=== PATIENT | male | born 1965 | race Caucasian/White ===

== ENCOUNTER 2016-11-26 13:30 | Emergency (ER) | payer BC, OTHER ==
[2016-11-26 13:44] VITALS: BP 143/90; TEMP 98.3; BMI 29.7
--- NOTE | 2016-11-26 13:57 | PDOC ---
History of Present Illness - General Chief Complaint: Injury Stated Complaint: Right middle finger injury Time Seen by Provider: 11/26/16 13:37 History Source: Patient Exam Limitations: No Limitations - History of Present Illness Initial Comments: 11/26/16 13:56 51y M preswnting with R middle finger pain. 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 the pt endorses feeling a pounding pain in his finger, but states it is mild and declines any pain meds. The pt states he was able to complete his route (injury occurred approx 10am). Pt denies any other injuries, numness/tingling/weakness. there was a small alceation that was bleeding, he put a bandaid on it and it has stopped bleeding Past History - Past Medical History Allergies/Adverse Reactions: Allergies Allergy/AdvReac Type Severity Reaction Status Date / Time No Known Drug Allergies Allergy Verified 11/26/16 13:36 Home Medications: Ambulatory Orders Amoxicillin/Potassium Clav [Augmentin 875-125 Tablet] 1 each PO BID #6 tablet Cephalexin [Keflex] 500 mg PO TID #9 capsule 11/26/16 Anemia: No Asthma: Yes (SINCE CHILDHOOD,DOESN'T USE INHALERS) Cancer: No Cardiac Disorders: No CVA: No COPD: No CHF: No Dementia: No Diabetes: No GI Disorders: No Disorders: No HTN: Yes Hypercholesterolemia: Yes Liver Disease: No Seizures: No Thyroid Disease: No - Surgical History Abdominal Surgery: Yes (REPAIR ABD HERNIA 1990) Appendectomy: No Cardiac Surgery: No Cholecystectomy: No Lung Surgery: No Neurologic Surgery: Yes (C5-7 FUSION 2006) Orthopedic Surgery: Yes (RIGHT LEG SX X2 1998,2000) - Psycho/Social/Smoking Cessation Hx Anxiety: No Suicidal Ideation: No Smoking Status: No Smoking History: Never smoked Have you smoked in the past 12 months: No Number of Cigarettes Smoked Daily: 0 Hx Alcohol Use: No Drug/Substance Use Hx: No Substance Use Type: None Hx Substance Use Treatment: No Review of Systems - Review of Systems Able to Perform ROS?: Yes Comments:: 11/26/16 13:59 Constitutional - no reported Fever, Chills, harge Musculskelatal - +R middle finger pain no reported back pain, skin - +laceration no reported bruising, erythema, rash neurological: no reported numbness, focal weakness, tingling, hematologic: no reported anemia, easy bruising, easy bleeding *Physical Exam - Vital Signs Last Vital Signs Temp Pulse Resp BP Pulse Ox 98.3 F 143 H 15 143/90 100 11/26/16 13:35 11/26/16 13:35 11/26/16 13:35 11/26/16 13:35 11/26/16 13:35 - Physical Exam Comments: 11/26/16 14:02 GENERAL: The patient is awake, alert, and fully oriented, Nontoxic - in no acute distress. HEAD: Normocephalic, atraumatic. EXTREMITIES: contusion and tenderness/edema to middle finger on R hand at DIP, .5cm laceration without any active bleeding, no signs of subungal hematoma, normal ROM of pip/mcp/dip, wrist/elbow/shoulder. NEUROLOGICAL: No facial assymetry, Normal speech, sensation intact, distally. Procedures - Consent Consent obtained: Verbal - Laceration/Wound Repair Right 3rd digit Wound Length: to 2.5 cm Wound Explored: clean, no foreign body present Wound's Depth, Shape: superficial Irrigated w/ Saline: Yes Anesthesia: 1% Lidocaine Amount of Anesthetic (ccs): 5 (digital block) Wound Debrided: minimal Wound Repaired With: Sutures Suture Size/Type: 5:0, 3:0, nylon Number of Sutures: 2 (1x 5.0, 1x 3.0) Layer Closure: No Sterile Dressing Applied: Yes ED Treatment Course - RADIOLOGY Radiology Studies Ordered: Category Date Time Status FINGER(S) RIGHT [RAD] Stat Radiology 11/26/16 13:54 Ordered Medical Decision Making - Medical Decision Making 11/26/16 14:04 will r/o fx with xray will update tetanus will clean/irregate lac and close with 1 suture 11/26/16 14:28 xray noted for tuft fx to distal phalynx technically meets criteria for open fracture - however i suspect there is no communication between fracture and laceration. will irrigate thgouhly and close laceration will give dose of ancef and will notify ortho 11/26/16 15:22 digital block performed area throughly irrigated with sterile saline no fb or other material noted closed with 2 sutures (1x 3.0, 1x 5.0) with good approximation will dc with augmentin x 5 days return in 10-14 days for suture removal return precautions were discussed including signs of infection I discussed the physical exam findings, ancillary test results and final diagnoses with the patient. I answered all of the patient's questions. The patient was satisfied with the care received and felt comfortable with the discharge plan and treatment plan. The patient will call their primary care physician within 24 hours to arrange follow-up and will return to the Emergency Department with any new, persistent or worsening symptoms. 11/26/16 15:49 case tasha [place], agree with management will have pt fu with ortho next week *DC/Admit/Observation/Transfer Diagnosis at time of Disposition: Open fracture of tuft of distal phalanx of finger Qualifiers: Encounter type: initial encounter Qualified Code(s): S62.639B - Displaced fracture of distal phalanx of unspecified finger, initial encounter for open fracture - Discharge Dispostion Disposition: HOME Condition at time of disposition: Good Admit: No - Prescriptions Prescriptions: Amoxicillin/Potassium Clav [Augmentin 875-125 Tablet] 1 each PO BID #6 tablet Cephalexin [Keflex] 500 mg PO TID #9 capsule - Referrals Referrals: Delonte Doyle MD [Primary Care Provider] - Isidro Iniguez MD [Staff Physician] - - Patient Instructions Printed Discharge Instructions: DI for Open Fracture Additional Instructions: Return to the emergency department immediately with ANY new, persistent or worsening symptoms including any worsening pain, redness, swelling, purulent discharge, fevers or chills or other concerns You MUST call and follow up with your doctor and orthopedic doctor in 1 week for further evaluation of your symptoms. Results were discussed with you. Please make sure your doctor reviews the results of your emergency evaluation. Print Language: FAROESE - Post Discharge Activity Work/School Note: Back to Work
[2016-11-26] MEDS ORDERED: DIPHTH,PERTUSS(ACELL),TET VAC 0.5 ML VIAL IM ONE (14:04)
[2016-11-26 14:07] VITALS: PULSE 68
[2016-11-26] MEDS ORDERED: CEFAZOLIN 1 GM in DEXTROSE 5%-WATER - 50 ML IVPB ONE (14:25)
[2016-11-26] MEDS ORDERED: ceFAZolin SODIUM 1 GM VIAL ONE (14:39)
== END 2016-11-26 16:13 | disposition home or self-care (01) ==
LOC: FER 13:30
PROC: 0HQFXZZ Repair Right Hand Skin, External Approach (ICD-10-PCS; principal; 2016-11-26)
DX: S62.639B Displaced fracture of distal phalanx of unspecified finger, initial encounter for open fracture (principal); S61.212A Laceration without foreign body of right middle finger without damage to nail, initial encounter; W22.8XXA Striking against or struck by other objects, initial encounter; Y93.89 Activity, other specified; Y92.410 Unspecified street and highway as the place of occurrence of the external cause; Y99.0 Civilian activity done for income or pay
CPT/HCPCS: 73140-TC-RT; 99282-25

== ENCOUNTER 2017-01-24 11:03 | Emergency (ER) | payer SELFPAY ==
--- NOTE | 2017-01-24 11:07 | PDOC ---
Attending Attestation - Resident Resident Name: Javier Gallardoel - ED Attending Attestation I have performed the following: I have examined & evaluated the patient, The case was reviewed & discussed with the resident, I agree w/resident's findings & plan, Exceptions are as noted - HPI HPI: 01/24/17 11:05 The patient is a 51-year-old male, with a significant past medical history of prior bee sting ALLERGY (non-anaphylactic) who presents to the emergency department with left ear swelling and pain, after he was stung by a wasp. He denies dyspnea, wheeze, diffuse rash, dizziness, abdominal pain. He denies any other stings. 01/24/17 11:31 - Physicial Exam PE: 01/24/17 11:06 He is well-appearing and in no acute distress Vitals noted Ears minimal erythema, increased warmth and edema of the left ear There is no rash or swelling elsewhere There is no swelling of the lips, tongue or posterior pharynx - Medical Decision Making 01/24/17 11:06 The patient is well-appearing and in no acute distress Vitals noted There is no evidence of anaphylaxis 01/24/17 11:31 No worsening of symptoms Clinical Impression: Local ALLERGIC reaction to hymenoptera I discussed the physical exam findings, ancillary test results and final diagnoses with the patient. I answered all of the patient's questions. The patient was satisfied with the care received and felt comfortable with the discharge plan and treatment plan. The patient will call their primary care physician within 24 hours to arrange follow-up and will return to the Emergency Department with any new, persistent or worsening symptoms.
[2017-01-24 11:16] VITALS: BP 122/82; PULSE 65; TEMP 98.2; BMI 28.1
--- NOTE | 2017-01-24 11:17 | PDOC ---
History of Present Illness - General Chief Complaint: Bite Stated Complaint: left ear bee sting Time Seen by Provider: 01/24/17 11:05 - History of Present Illness Initial Comments: 01/24/17 11:25 Patient is a 51 year old male with a previous history of a localized reaction to bee venom who presents immediately following a sting to his left ear 15 min prior. Patient reported initial pain with the sting which has resolved and now reports numbness to the left ear lobe. He reports that with his previous sting , he experienced localized swelling without any difficulty breathing, abdominal discomfort or hives. He currently denies any difficulty breathing, abdominal discomfort, nausea, vomiting, rash, or itching. Past History - Past Medical History Allergies/Adverse Reactions: Allergies Allergy/AdvReac Type Severity Reaction Status Date / Time bee venom protein (honey bee) Allergy Verified 01/24/17 11:05 No Known Drug Allergies Allergy Verified 11/26/16 13:36 Anemia: No Asthma: Yes (SINCE CHILDHOOD,DOESN'T USE INHALERS) Cancer: No Cardiac Disorders: No CVA: No COPD: No CHF: No Dementia: No Diabetes: No GI Disorders: No Disorders: No HTN: Yes Hypercholesterolemia: Yes Liver Disease: No Seizures: No Thyroid Disease: No - Surgical History Abdominal Surgery: Yes (REPAIR ABD HERNIA 1990) Appendectomy: No Cardiac Surgery: No Cholecystectomy: No Lung Surgery: No Neurologic Surgery: Yes (C5-7 FUSION 2006) Orthopedic Surgery: Yes (RIGHT LEG SX X2 1998,2000) - Immunization History Immunization Up to Date: Yes - Psycho/Social/Smoking Cessation Hx Anxiety: No Suicidal Ideation: No Smoking Status: No Smoking History: Never smoked Have you smoked in the past 12 months: No Number of Cigarettes Smoked Daily: 0 Information on smoking cessation initiated: No Hx Alcohol Use: No Drug/Substance Use Hx: No Substance Use Type: None Hx Substance Use Treatment: No Review of Systems - Review of Systems Constitutional: No: Malaise, Weakness HEENTM: Yes: Ear Pain. No: Ear Discharge, Hearing Loss, Throat Swelling, Difficulty Swallowing, Mouth Swelling Respiratory: No: Cough, Shortness of Breath, Wheezing ABD/GI: No: Nausea, Vomiting, Abdominal cramping Neurological: No: Headache, Weakness, Dizziness *Physical Exam - Vital Signs Last Vital Signs Temp Pulse Resp BP Pulse Ox 98.2 F 65 20 122/82 98 01/24/17 11:04 07/03/17 11:04 01/24/17 11:04 01/24/17 11:04 01/24/17 11:04 - Physical Exam General Appearance: Yes: Nourished. No: Apparent Distress HEENT: positive: Normal Voice, Other (Erythema and Mild edema to the left outer ear lobe localized around a sting site. No labial or pharangeal edema.). negative: Hearing Decreased, TM Bulging, TM Erythema Respiratory/Chest: positive: Lungs Clear, Normal Breath Sounds. negative: Rales , Rhonchi, Wheezing Cardiovascular: positive: Regular Rhythm, Regular Rate Gastrointestinal/Abdominal: positive: Normal Bowel Sounds, Soft. negative: Tender Medical Decision Making - Medical Decision Making 01/24/17 11:37 Given the patient's history of a previous localized reaction to a bee sting and his current physical exam, his symptoms are most consistent with a localized reaction to this current sting. However, given his previous reaction we still opted to observe the patient for 30-45min to make sure that he did not develop an anaphylactic reaction. We gave the patient 25mg Benadryl to help with the localized reaction as well. The patient remained asymptomatic throughout his stay in the ED and was determined to be safe for discharge home. Return precautions were discussed with the patient and the patient voiced understanding. 01/24/17 11:54 *DC/Admit/Observation/Transfer Diagnosis at time of Disposition: Bee sting reaction Qualifiers: Encounter type: initial encounter Injury intent: accidental or unintentional Qualified Code(s): T63.441A - Toxic effect of venom of bees, accidental ( unintentional), initial encounter - Discharge Dispostion Disposition: HOME Condition at time of disposition: Improved Admit: No - Patient Instructions Printed Discharge Instructions: DI for Insect Bites and Stings Additional Instructions: Please return to the ER with worsening symptoms including difficulty breathing, hives or vomiting. Please follow up with your Primary care Physician to review the results of your ER visit. - Post Discharge Activity Work/School Note: Back to Work
[2017-01-24] MEDS ORDERED: diphenhydrAMINE HCL 25 MG CAPSULE (FP) PO ONE ×2 (11:23→11:25)
== END 2017-01-24 11:58 | disposition home or self-care (01) ==
LOC: FER 11:03
DX: T63.441A Toxic effect of venom of bees, accidental (unintentional), initial encounter (principal); Y93.9 Activity, unspecified; Y92.9 Unspecified place or not applicable; J45.909 Unspecified asthma, uncomplicated; I10 Essential (primary) hypertension; E78.00 Pure hypercholesterolemia, unspecified
CPT/HCPCS: 99282-25

== ENCOUNTER 2017-03-01 11:24 | Emergency (ER) | payer BC ==
[2017-03-01] MEDS ORDERED: predniSONE 20 MG TABLET (UD) PO ONE (11:26)
[2017-03-01] MEDS ORDERED: diphenhydrAMINE HCL 25 MG CAPSULE (FP) PO ONE (11:26)
--- NOTE | 2017-03-01 11:26 | PDOC ---
History of Present Illness - General Chief Complaint: Allergic Reaction Stated Complaint: BEE STINGS Time Seen by Provider: 03/01/17 11:26 History Source: Patient Exam Limitations: No Limitations - History of Present Illness Initial Comments: 51 yo M history of bee sting allergy presents with multiple hornet stings. He states that he was trimming hedges with vehicle trimmer, hit a hornet's nest and sustained multiple stings. He denies any difficulty breathing. No sensation of throat closing. He states that he has multiple stings to his arms, chest, abdomen, and his left ear. C/o mild localized pain. Past History - Past Medical History Allergies/Adverse Reactions: Allergies Allergy/AdvReac Type Severity Reaction Status Date / Time bee venom protein (honey bee) Allergy Verified 03/01/17 11:25 No Known Drug Allergies Allergy Verified 03/01/17 11:25 Anemia: No Asthma: Yes (SINCE CHILDHOOD,DOESN'T USE INHALERS) Cancer: No Cardiac Disorders: No CVA: No COPD: No CHF: No Dementia: No Diabetes: No GI Disorders: No Disorders: No HTN: Yes Hypercholesterolemia: Yes Liver Disease: No Seizures: No Thyroid Disease: No - Surgical History Abdominal Surgery: Yes (REPAIR ABD HERNIA 1990) Appendectomy: No Cardiac Surgery: No Cholecystectomy: No Lung Surgery: No Neurologic Surgery: Yes (C5-7 FUSION 2006) Orthopedic Surgery: Yes (RIGHT LEG SX X2 1998,2000) - Immunization History Immunization Up to Date: Yes - Psycho/Social/Smoking Cessation Hx Anxiety: No Suicidal Ideation: No Smoking Status: No Smoking History: Never smoked Have you smoked in the past 12 months: No Number of Cigarettes Smoked Daily: 0 Hx Alcohol Use: No Drug/Substance Use Hx: No Substance Use Type: None Hx Substance Use Treatment: No Review of Systems - Review of Systems Able to Perform ROS?: Yes Comments:: GENERAL/CONSTITUTIONAL: No fever or chills. No weakness. HEAD, EYES, EARS, NOSE AND THROAT: No change in vision. No ear pain or discharge. No sore throat. CARDIOVASCULAR: No chest pain or shortness of breath. RESPIRATORY: No cough, wheezing, or hemoptysis. GASTROINTESTINAL: No nausea, vomiting, diarrhea or constipation. GENITOURINARY: No dysuria, frequency, or change in urination. MUSCULOSKELETAL: No joint or muscle swelling or pain. No neck or back pain. SKIN: +Multiple hornet stings. NEUROLOGIC: No headache, vertigo, loss of consciousness, or change in strength/ sensation. ENDOCRINE: No increased thirst. No abnormal weight change. HEMATOLOGIC/LYMPHATIC: No anemia, easy bleeding, or history of blood clots. ALLERGIC/IMMUNOLOGIC: No hives or skin allergy. *Physical Exam - Physical Exam Comments: GENERAL: Awake, alert, and fully oriented, in no acute distress HEAD: No signs of trauma EYES: PERRLA, EOMI, sclera anicteric, conjunctiva clear ENT: Auricles normal inspection, hearing grossly normal, nares patent, oropharynx clear without exudates. Moist mucosa. No voice changes. NECK: Normal ROM, supple, no lymphadenopathy, JVD, or masses LUNGS: Breath sounds equal, clear to auscultation bilaterally. No wheezes, and no crackles HEART: Regular rate and rhythm, normal S1 and S2, no murmurs, rubs or gallops ABDOMEN: Soft, nontender, normoactive bowel sounds. No guarding, no rebound. No masses EXTREMITIES: Normal range of motion, no edema. No clubbing or cyanosis. No cords, erythema, or tenderness NEUROLOGICAL: Cranial nerves II through XII grossly intact. Normal speech, normal gait SKIN: Warm, Dry, normal turgor. +Multiple puncture boone to the limbs, 1 to the abdomen, and 1 to the left ear. Medical Decision Making - Medical Decision Making 03/01/17 12:35 +Improvement in redness at the wounds. Will cont to observe in light of history of allergy. 03/01/17 13:34 Pt observed in ED for 2 hours. No airway involvement. Stable for DC home. Given the number of stings, will DC home with prednisone. *DC/Admit/Observation/Transfer Diagnosis at time of Disposition: Bee sting reaction Qualifiers: Encounter type: initial encounter Injury intent: undetermined intent Qualified Code(s): T63.444A - Toxic effect of venom of bees, undetermined, initial encounter - Discharge Dispostion Disposition: HOME Condition at time of disposition: Improved Admit: No
[2017-03-01] MEDS ORDERED: methylPREDNISolone NA SUCC 125 MG/2 ML VIAL IVPB ONE (11:30)
[2017-03-01 11:42] VITALS: BMI 29.0
[2017-03-01 13:41] VITALS: BP 129/86; PULSE 66; TEMP 98.9
== END 2017-03-01 13:43 | disposition home or self-care (01) ==
LOC: FER 11:24
PROC: 3E033GC Introduction of Other Therapeutic Substance into Peripheral Vein, Percutaneous Approach (ICD-10-PCS; principal; 2017-03-01)
DX: T63.444A Toxic effect of venom of bees, undetermined, initial encounter (principal); X58.XXXA Exposure to other specified factors, initial encounter; Y93.H2 Activity, gardening and landscaping; Y92.89 Other specified places as the place of occurrence of the external cause; Y99.0 Civilian activity done for income or pay; J45.909 Unspecified asthma, uncomplicated; I10 Essential (primary) hypertension
CPT/HCPCS: 99283-25

== ENCOUNTER 2017-11-14 14:56 | Emergency (ER) | payer OTHER, BC ==
--- NOTE | 2017-11-14 14:59 | PDOC ---
History of Present Illness - General History Source: Patient - History of Present Illness Initial Comments: 11/14/17 16:38 The patient is a 52 year old male with a significant PMH of who asthma, hypertension, and dermatitis presents to the emergency department with left groin pain and hip pain. The patient reports that he was lifting coffee barrels 2 weeks ago when he stepped off of the sidewalk and twisted his hip towards the right. He reports that he started to experience left groin pain and hip pain . He reports that his left groin pain and hip pain is worsened with walking. He reports that he has been experiencing associated left sided testicular pain . The patient reports that he took advil 2 days ago with some relief. He reports minimal constipation . He denies any nausea vomiting, diarrhea, fever or chills. He denies any urinary symptoms or back pain. The patient denies any other complaints. 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 PCP: None reported <Maria Teresa Heredia - Last Filed: 11/14/17 16:38> <Joyce Piedra - Last Filed: 11/14/17 17:14> - General Chief Complaint: Pain Stated Complaint: left groin and hip pain Time Seen by Provider: 11/14/17 14:57 Past History <Maria Teresa Heredia - Last Filed: 11/14/17 16:38> - Past Medical History Anemia: No Asthma: Yes (SINCE CHILDHOOD,DOESN'T USE INHALERS) Cancer: No Cardiac Disorders: No CVA: No COPD: No CHF: No Dementia: No Diabetes: No GI Disorders: No Disorders: No HTN: Yes Hypercholesterolemia: Yes Liver Disease: No Seizures: No Thyroid Disease: No - Surgical History Abdominal Surgery: Yes (REPAIR ABD HERNIA 1990) Appendectomy: No Cardiac Surgery: No Cholecystectomy: No Lung Surgery: No Neurologic Surgery: Yes (C5-7 FUSION 2006) Orthopedic Surgery: Yes (RIGHT LEG SX X2 1998,2000) - Immunization History Immunization Up to Date: Yes - Suicide/Smoking/Psychosocial Hx Smoking Status: No Smoking History: Never smoked Have you smoked in the past 12 months: No Number of Cigarettes Smoked Daily: 0 Hx Alcohol Use: No Drug/Substance Use Hx: No Substance Use Type: None Hx Substance Use Treatment: No <Joyce Piedra - Last Filed: 11/14/17 17:14> - Past Medical History Allergies/Adverse Reactions: Allergies Allergy/AdvReac Type Severity Reaction Status Date / Time bee venom protein (honey bee) Allergy Verified 11/14/17 14:57 No Known Drug Allergies Allergy Verified 11/14/17 14:57 Home Medications: Ambulatory Orders Ibuprofen [Motrin -] 600 mg PO TID PRN #21 tablet 11/14/17 Review of Systems - Review of Systems Able to Perform ROS?: Yes Comments:: 11/14/17 16:38 GENERAL/CONSTITUTIONAL: No fever or chills. No weakness. HEAD, EYES, EARS, NOSE AND THROAT: No change in vision. No ear pain or discharge. No sore throat. CARDIOVASCULAR: No chest pain or shortness of breath. RESPIRATORY: No cough, wheezing, or hemoptysis. GASTROINTESTINAL: No nausea, vomiting, diarrhea or constipation. GENITOURINARY: (+) left groin pain , left testicular pain. No dysuria, frequency, or change in urination. MUSCULOSKELETAL: (+) hip pain. No neck or back pain. SKIN: No rash NEUROLOGIC: No headache, vertigo, loss of consciousness, or change in strength/ sensation. ENDOCRINE: No increased thirst. No abnormal weight change. HEMATOLOGIC/LYMPHATIC: No anemia, easy bleeding, or history of blood clots. ALLERGIC/IMMUNOLOGIC: No hives or skin allergy. <Maria Teresa Heredia - Last Filed: 11/14/17 16:38> *Physical Exam - Vital Signs Last Vital Signs Temp Pulse Resp BP Pulse Ox 98.9 F 78 16 124/89 100 11/14/17 14:57 11/14/17 14:57 11/14/17 14:57 11/14/17 14:57 11/14/17 14:57 - Physical Exam Comments: 11/14/17 16:38 GENERAL: Awake, alert, and fully oriented, in no acute distress HEAD: No signs of trauma EYES: PERRLA, EOMI, sclera anicteric, conjunctiva clear ENT: Auricles normal inspection, hearing grossly normal, nares patent, oropharynx clear without exudates. Moist mucosa NECK: Normal ROM, supple, no lymphadenopathy, JVD, or masses LUNGS: Breath sounds equal, clear to auscultation bilaterally. No wheezes, and no crackles HEART: Regular rate and rhythm, normal S1 and S2, no murmurs, rubs or gallops ABDOMEN: (+) tenderness with ASIS and lateral trope. Belly soft, nontender, normoactive bowel sounds. No guarding, no rebound. No masses. No sports hernia. Circumcised. EXTREMITIES: Normal range of motion, no edema. No clubbing or cyanosis. No cords, erythema, or tenderness NEUROLOGICAL: Cranial nerves II through XII grossly intact. Normal speech, Ambulated with steady gait SKIN: Warm, Dry, normal turgor, no rashes or lesions noted. <Maria Teresa Heredia - Last Filed: 11/14/17 16:38> ED Treatment Course - Medications Given in the ED: ED Medications Discontinued Medications Generic Name Dose Route Start Last Admin Trade Name Calvinq PRN Reason Stop Dose Admin Acetaminophen 1,000 mg 11/14/17 15:28 11/14/17 15:54 Tylenol - PO 11/14/17 15:29 1,000 mg ONCE ONE Administration <Maria Teresa Heredia - Last Filed: 11/14/17 16:38> Medical Decision Making - Medical Decision Making 11/14/17 15:31 a/p: 52yo male with L hip and groin pain x 2 weeks -normal testicular exam -no signs of hernia -ttp over ASIS and lateral hip - along bursa -suspect muscle strain vs osteoarthritis of hip vs low back strain -will obtain xrays -tylenol for pain -will most likely need ortho outpt follow up 11/14/17 17:10 pt has been ambulatory in the ED discussed xray findings no hernias palpated either when standing or laying flat scrotal and testicular exam normal lateral hip ttp- suspect MSK pain. recommend motrin and ortho follow up discussed hernia risk with heavy lifting and gave detailed return precautions to the patient answered all questions stable for d/c to home <Joyce Piedra - Last Filed: 11/14/17 17:14> *DC/Admit/Observation/Transfer - Attestations Scribe Attestion: 11/14/17 16:39 Documentation prepared by Maria Teresa Heredia, acting as medical office coordinator for Joyce Piedra MD. <Maria Teresa Heredia - Last Filed: 11/14/17 16:38> - Discharge Dispostion Admit: No - Attestations Physician Attestion: 11/14/17 17:14 I, Dr. Joyce Piedra, DO, attest that this document has been prepared under my direction and personally reviewed by me in its entirety. I further attest, that it accurately reflects all work, treatment, procedures and medical decision -making performed by me. <Joyce Piedra - Last Filed: 11/14/17 17:14> Diagnosis at time of Disposition: Hip pain, left - Discharge Dispostion Disposition: HOME Condition at time of disposition: Stable - Prescriptions Prescriptions: Ibuprofen [Motrin -] 600 mg PO TID PRN #21 tablet PRN Reason: Pain - Referrals Referrals: Sly Bernard MD [Staff Physician] - - Patient Instructions Printed Discharge Instructions: Help for Hip Pain, DI for Osteoarthritis Additional Instructions: Please take all medications as prescribed. Please make an appointment to see the orthopedist at their first availability. Please make an appointment to see your PMD. Please return to the ED with any further concerns. - Post Discharge Activity Forms/Work/School Notes: Back to Work
[2017-11-14 15:09] VITALS: BP 124/89; PULSE 78; TEMP 98.9; BMI 29.8
[2017-11-14] MEDS ORDERED: ACETAMINOPHEN 500 MG TABLET (FP) PO ONE (15:28)
[2017-11-14] MEDS ORDERED: ACETAMINOPHEN 500 MG TABLET (FP) ONE (15:42)
== END 2017-11-14 17:20 | disposition home or self-care (01) ==
LOC: FER 14:56
DX: M25.552 Pain in left hip (principal); J45.909 Unspecified asthma, uncomplicated; I10 Essential (primary) hypertension; L30.9 Dermatitis, unspecified
CPT/HCPCS: 72100-TC-FY; 73523-TC-FY; 99282-25

== ENCOUNTER 2018-04-20 16:10 | Emergency (ER) | payer OTHER, BC ==
[2018-04-20 16:16] VITALS: BP 135/85; PULSE 70; TEMP 98.4; BMI 27.3
[2018-04-20] MEDS ORDERED: FLUORESCEIN NA 1 EA STRIP OS ONE (16:30)
[2018-04-20] MEDS ORDERED: TETRAHYDROZOLINE HCL EYE DROPS OS ONE (16:32)
[2018-04-20] MEDS ORDERED: TETRACAINE 0.5% OPHTH SOLN 2 ML BOTTLE ONE (16:32)
[2018-04-20] MEDS ORDERED: FLUORESCEIN NA 1 EA STRIP ONE (16:32)
--- NOTE | 2018-04-20 16:34 | PDOC ---
History of Present Illness - General Chief Complaint: Eye Problem Stated Complaint: LEFT EYE INJURY, FB SENSATION Time Seen by Provider: 04/20/18 16:27 - History of Present Illness Initial Comments: The patient is a 52M who presents for evaluation of L eye pain s/p being hit in the face/eye with a piece of cardboard at 0700 this morning. Since that time the patient states that he has had mild pain with ocular movement and a scratching pain with blinking. He has also noted increased conjuctival redness as well as increased tearing. He denies any changes in vision, loss of vision, or blurry vision. The patient denies any other injury, recent illness, SNYDER, chest pain, or SOB. 04/20/18 16:45 Past History - Past Medical History Allergies/Adverse Reactions: Allergies Allergy/AdvReac Type Severity Reaction Status Date / Time bee venom protein (honey bee) Allergy Verified 04/20/18 16:11 No Known Drug Allergies Allergy Verified 04/20/18 16:11 Anemia: No Asthma: Yes (SINCE CHILDHOOD,DOESN'T USE INHALERS) Cancer: No Cardiac Disorders: No CVA: No COPD: No CHF: No Dementia: No Diabetes: No GI Disorders: No Disorders: No HTN: Yes (NOT ON MEDS ANYMORE) Hypercholesterolemia: Yes Liver Disease: No Seizures: No Thyroid Disease: No - Surgical History Abdominal Surgery: Yes (REPAIR ABD HERNIA 1990) Appendectomy: No Cardiac Surgery: No Cholecystectomy: No Lung Surgery: No Neurologic Surgery: Yes (C5-7 FUSION 2006) Orthopedic Surgery: Yes (RIGHT LEG SX X2 1998,2000) - Immunization History Immunization Up to Date: Yes - Suicide/Smoking/Psychosocial Hx Smoking Status: No Smoking History: Never smoked Have you smoked in the past 12 months: No Number of Cigarettes Smoked Daily: 0 Information on smoking cessation initiated: No Hx Alcohol Use: No Drug/Substance Use Hx: No Substance Use Type: None Hx Substance Use Treatment: No Review of Systems - Review of Systems Able to Perform ROS?: Yes Comments:: GENERAL/CONSTITUTIONAL: No fever or chills. No weakness CARDIOVASCULAR: No chest pain or shortness of breath RESPIRATORY: No cough, wheezing, or hemoptysis GASTROINTESTINAL: No nausea, vomiting, diarrhea or constipation GENITOURINARY: No dysuria, frequency, or change in urination MUSCULOSKELETAL: No joint or muscle swelling or pain. No neck or back pain SKIN: No rash NEUROLOGIC: No headache, vertigo, loss of consciousness, or change in strength/ sensation 04/20/18 16:59 Is the patient limited Nicar[place]uan proficient: No *Physical Exam - Vital Signs Last Vital Signs Temp Pulse Resp BP Pulse Ox 98.4 F 70 18 135/85 99 04/20/18 16:10 04/20/18 16:10 04/20/18 16:10 04/20/18 16:10 04/20/18 16:10 - Physical Exam Comments: GENERAL: Awake, alert, and fully oriented, in no acute distress HEAD: No signs of trauma, normocephalic, atraumatic ENT: Hearing grossly normal, nares patent, oropharynx clear without exudates. Moist mucosa LUNGS: breathing comfortably on room air with symmetric chest rise HEART: Regular rate and rhythm, peripheral pulses normal and equal bilaterally EXTREMITIES : Normal inspection, Normal range of motion, no edema. No clubbing or cyanosis NEUROLOGICAL: Cranial nerves II through XII grossly intact. Normal speech, normal gait, no focal sensorimotor deficits SKIN: Warm, Dry Eye Visual Acuity: OD 20/20; OS 20/20; w/o glasses/contacts Visual Murillo:OD intact x 4; OS intact x 4 Extraocular movements: OD intact w/o diplopia; OS intact w/o diplopia Lids/Lashes/Lacrimal: OD no lesions; OS no lesions Conjunctiva & Sclera: OD conjuctiva clear w/ white sclera; OS conjuctivitis Cornea: OS fluorescein uptake at 9 o'clock position with overlying the pupil Iris: OD round and reactive; OS round and reactive Lens: OD clear; OS clear 04/20/18 16:51 Medical Decision Making - Medical Decision Making The patient is a 52M who presents for evaluation of L eye pain s/p being hit in the face/eye with a piece of cardboard at 0700 this morning. ED Course Tetracaine applied in OS with significant pain relief Fluorescein stain revealed a small conjunctival/corneal abrasion at the 9 o' clock position that does not cross the pupil No foreign object observed Patient given eye care instructions and return precautions Plan for DC Patient in agreement and verbalized understanding Dispo: Home 04/20/18 16:47 *DC/Admit/Observation/Transfer Diagnosis at time of Disposition: Corneal abrasion, left Qualifiers: Encounter type: initial encounter Qualified Code(s): S05.02XA - Injury of conjunctiva and corneal abrasion without foreign body, left eye, initial encounter - Discharge Dispostion Disposition: HOME Condition at time of disposition: Stable Decision to Admit order: No - Referrals - Patient Instructions Printed Discharge Instructions: DI for Corneal Abrasion Additional Instructions: You were seen today in the Emergency Room for a corneal/conjuctival abrasion. Please review the handouts provided at discharge. Return to the Emergency Room if you develop fevers, worsening vision, change in the quality of your tears, worsening redness/pain, any new/concerning symptoms. - Post Discharge Activity
[2018-04-20] MEDS ORDERED: TETRACAINE 0.5% HCL 0.6ML DROPPER.BOTTLE OU ONE (16:44)
--- NOTE | 2018-04-20 16:51 | PDOC ---
Attending Attestation - Resident Resident Name: Rayo Shrestha - ED Attending Attestation I have performed the following: I have examined & evaluated the patient, The case was reviewed & discussed with the resident, I agree w/resident's findings & plan - HPI HPI: 04/20/18 16:46 52y/o M p/w accidental injury to Left eye with a piece of cardboard. no vision change or loss, no other injury. tetanus utd. - Physicial Exam PE: 04/20/18 16:46 well appearing, vs normal VA 20/20 to affected eye + corneal abrasion visible on fluorescin exam at 9 o'clock on medial aspect of iris. PERRL, EOMI. pain resolved after tetracaine - Medical Decision Making 04/20/18 16:51 52y/o M with superficial corneal abrasion, vision intact without evidence of deep eye tissue injury. reassured tetanus utd artificial tears for any dry sensation, otherwise cautioned for signs of infection and return criteria
== END 2018-04-20 16:50 | disposition home or self-care (01) ==
LOC: FER 16:10
DX: S05.02XA Injury of conjunctiva and corneal abrasion without foreign body, left eye, initial encounter (principal); W22.8XXA Striking against or struck by other objects, initial encounter; Y93.89 Activity, other specified; Y92.89 Other specified places as the place of occurrence of the external cause; I10 Essential (primary) hypertension; E78.00 Pure hypercholesterolemia, unspecified; J45.909 Unspecified asthma, uncomplicated
CPT/HCPCS: 99283-25

== ENCOUNTER 2018-06-09 11:34 | Emergency (ER) | payer OTHER, BC ==
[2018-06-09 11:43] VITALS: BP 132/79; PULSE 78; TEMP 98.1; BMI 27.3
[2018-06-09] MEDS ORDERED: KETOROLAC TROMETHAMINE 30 MG/1 ML VIAL IM ONE (12:30)
[2018-06-09] MEDS ORDERED: KETOROLAC TROMETHAMINE 30 MG/1 ML VIAL ONE (12:33)
--- NOTE | 2018-06-09 12:45 | PDOC ---
History of Present Illness - General Chief Complaint: Injury Stated Complaint: LEFT HIP PAIN Time Seen by Provider: 06/09/18 11:40 - History of Present Illness Initial Comments: 06/09/18 12:40 52 M with no PMH presents to ED with L hip pain. 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 Pt denies falling or any trauma to the area. States that the pain is worse with walking. Denies N/V. Denies back pain. Denies abdominal pain. No dysuria or hematuria. Past History - Past Medical History Allergies/Adverse Reactions: Allergies Allergy/AdvReac Type Severity Reaction Status Date / Time bee venom protein (honey bee) Allergy Verified 04/20/18 16:11 No Known Drug Allergies Allergy Verified 04/20/18 16:11 Home Medications: Ambulatory Orders NK [No Known Home Medication] 06/09/18 Anemia: No Asthma: Yes (SINCE CHILDHOOD,DOESN'T USE INHALERS) Cancer: No Cardiac Disorders: No CVA: No COPD: No CHF: No Dementia: No Diabetes: No GI Disorders: No Disorders: No HTN: Yes (NOT ON MEDS ANYMORE) Hypercholesterolemia: Yes Liver Disease: No Seizures: No Thyroid Disease: No - Surgical History Abdominal Surgery: Yes (REPAIR ABD HERNIA 1990) Appendectomy: No Cardiac Surgery: No Cholecystectomy: No Lung Surgery: No Neurologic Surgery: Yes (C5-7 FUSION 2006) Orthopedic Surgery: Yes (RIGHT LEG SX X2 1998,2000) - Immunization History Immunization Up to Date: Yes - Suicide/Smoking/Psychosocial Hx Smoking Status: No Smoking History: Never smoked Have you smoked in the past 12 months: No Number of Cigarettes Smoked Daily: 0 Hx Alcohol Use: No Drug/Substance Use Hx: No Substance Use Type: None Hx Substance Use Treatment: No Review of Systems - Review of Systems Comments:: 06/09/18 12:41 "GENERAL/CONSTITUTIONAL: No fever or chills. No weakness. HEAD, EYES, EARS, NOSE AND THROAT: No change in vision. No ear pain or discharge. No sore throat. CARDIOVASCULAR: No chest pain, no shortness of breath, no loss of consciousness RESPIRATORY: No cough, wheezing, or hemoptysis. GASTROINTESTINAL: No nausea, vomiting, diarrhea or constipation. GENITOURINARY: No dysuria, frequency, or change in urination. MUSCULOSKELETAL: + L hip pain, No neck or back pain. SKIN: No rash NEUROLOGIC: No vertigo, no change in strength/sensation. ENDOCRINE: No increased thirst. No abnormal weight change. HEMATOLOGIC/LYMPHATIC: No anemia, easy bleeding, or history of blood clots. ALLERGIC/IMMUNOLOGIC: No hives or skin allergy. *Physical Exam - Vital Signs Last Vital Signs Temp Pulse Resp BP Pulse Ox 98.1 F 78 16 132/79 100 06/09/18 11:35 06/09/18 11:35 06/09/18 11:35 06/09/18 11:35 06/09/18 11:35 - Physical Exam Comments: 06/09/18 12:42 GENERAL: Awake, alert, and fully oriented, in no acute distress. HEAD: No signs of trauma EYES: PERRLA, EOMI, sclera anicteric, conjunctiva clear ENT: Auricles normal inspection, hearing grossly normal, nares patent, oropharynx clear without exudates. Moist mucosa NECK: Nontender, no stepoffs, Normal ROM, supple, no lymphadenopathy, JVD, or masses LUNGS: Breath sounds equal, clear to auscultation bilaterally. No wheezes, and no crackles HEART: Regular rate and rhythm, normal S1 and S2, no murmurs, rubs or gallops ABDOMEN: Soft, nontender, normoactive bowel sounds. No guarding, no rebound. No masses EXTREMITIES: + mild TTP over L anterior superior iliac spine, Normal range of motion, no edema. No clubbing or cyanosis. No cords, erythema, or tenderness NEUROLOGICAL: Cranial nerves II through XII intact. 5/5 strength and sensation in all extremities, Normal speech, normal gait, normal cerebellar function SKIN: Warm, Dry, normal turgor, no rashes or lesions noted. Medical Decision Making - Medical Decision Making 06/09/18 12:43 52 M with L hip pain, tender at L ASIS. Likely tendonitis vs bursitis. No evidence of traumatic injury. Benign abdomen. No CVAT to suggest kidney stone. - Toradol - F/u ortho Pt is well appearing, with normal vitals. Clinically stable for DC at this time. I discussed the physical exam findings, ancillary test results and final diagnoses with the patient. I answered all of the patient's questions. The patient was satisfied with the care received and felt comfortable with the discharge plan and treatment plan. The patient agrees to follow up with the primary care physician within 24-72 hours. *DC/Admit/Observation/Transfer Diagnosis at time of Disposition: Hip pain - Discharge Dispostion Disposition: HOME Condition at time of disposition: Good - Referrals Referrals: Dusty Louis MD [Primary Care Provider] - Jason De Anda MD [Staff Physician] - - Patient Instructions Printed Discharge Instructions: DI for Hip Bursitis Additional Instructions: You likely have a tendinitis or bursitis. Take motrin as needed for your pain. Do not use more than directed. Avoid any strenuous activity for the next few days. If you experience worsening pain, fevers, abdominal pain, or any other concerning symptoms, return to the ER immediately. Otherwise, follow up with an orthopedist for further evaluation of your hip pain. - Post Discharge Activity Forms/Work/School Notes: Back to Work - Attestations Physician Attestion: 06/09/18 12:45 I, Dr. Jason Nunes MD, attest that this document has been prepared under my direction and personally reviewed by me in its entirety. I further attest, that it accurately reflects all work, treatment, procedures and medical decision -making performed by me.
== END 2018-06-09 12:53 | disposition home or self-care (01) ==
LOC: FER 11:34
PROC: 3E0233Z Introduction of Anti-inflammatory into Muscle, Percutaneous Approach (ICD-10-PCS; principal; 2018-06-09)
DX: M25.552 Pain in left hip (principal); X58.XXXA Exposure to other specified factors, initial encounter; Y93.89 Activity, other specified; Y92.410 Unspecified street and highway as the place of occurrence of the external cause; Y99.0 Civilian activity done for income or pay; I10 Essential (primary) hypertension
CPT/HCPCS: 99281-25

== ENCOUNTER 2018-06-20 15:44 | Emergency (ER) | payer OTHER, BC ==
[2018-06-20 15:48] VITALS: BP 129/74; PULSE 88; TEMP 97.8; BMI 27.3
--- NOTE | 2018-06-20 15:56 | PDOC ---
History of Present Illness - General Chief Complaint: Injury Stated Complaint: RT 2ND FINGER INJURY Time Seen by Provider: 06/20/18 15:52 - History of Present Illness Initial Comments: 06/20/18 15:55 52 yo M with no significant pmh who p/w p/w right second digit swelling s/p injury. Patents reports acute onset of right second digit swelling this morning. Patient with difficulty flexing involved digit. States that he cut his fingertip on sheet rock yesterday afternoon at work, and w/out blood loss.Denies laceration, or foreign body involvement. Patient R hand dominant. Denies numbness/tingling of involved digit. Denies analgesia, or symptom control. Reports R 2nd digit injury x 1 year ago. Does not recall last tetanus. Patient denies N/V, F,C, CP, SOB, urinary complaints, abdominal pain, diarrhea, constipation, lightheadedness, weakness, sensory changes. PMHx: as noted above ROS: as noted SHx: Denies tobacco, IVDA Allergies: NKDA Past History - Past Medical History Allergies/Adverse Reactions: Allergies Allergy/AdvReac Type Severity Reaction Status Date / Time bee venom protein (honey bee) Allergy Verified 06/20/18 15:45 No Known Drug Allergies Allergy Verified 06/20/18 15:45 Home Medications: Ambulatory Orders Atorvastatin Ca [Lipitor] 20 mg PO HS 06/20/18 Cephalexin [Keflex] 500 mg PO BID #5 capsule MDD 2 tab 06/20/18 Anemia: No Asthma: Yes (SINCE CHILDHOOD,DOESN'T USE INHALERS) Cancer: No Cardiac Disorders: No CVA: No COPD: No CHF: No Dementia: No Diabetes: No GI Disorders: No Disorders: No HTN: Yes (NOT ON MEDS ANYMORE) Hypercholesterolemia: Yes Liver Disease: No Seizures: No Thyroid Disease: No - Surgical History Abdominal Surgery: Yes (REPAIR ABD HERNIA 1990) Appendectomy: No Cardiac Surgery: No Cholecystectomy: No Lung Surgery: No Neurologic Surgery: Yes (C5-7 FUSION 2006) Orthopedic Surgery: Yes (RIGHT LEG SX X2 1998,2000) - Immunization History Immunization Up to Date: Yes - Suicide/Smoking/Psychosocial Hx Smoking Status: No Smoking History: Never smoked Have you smoked in the past 12 months: No Number of Cigarettes Smoked Daily: 0 Information on smoking cessation initiated: No Hx Alcohol Use: No Drug/Substance Use Hx: No Substance Use Type: None Hx Substance Use Treatment: No Review of Systems - Review of Systems Comments:: 06/20/18 15:55 GENERAL/CONSTITUTIONAL: No fever or chills. No weakness. HEAD, EYES, EARS, NOSE AND THROAT: No change in vision. No ear pain or discharge. No sore throat. CARDIOVASCULAR: No chest pain or shortness of breath RESPIRATORY: No cough, wheezing, or hemoptysis. GASTROINTESTINAL: No nausea, vomiting, diarrhea or constipation. GENITOURINARY: No dysuria, frequency, or change in urination. MUSCULOSKELETAL: + Right 2nd digit swelling. No other joint or muscle swelling or pain. No neck or back pain. SKIN: No rash NEUROLOGIC: No headache, vertigo, loss of consciousness, or change in strength/ sensation. ENDOCRINE: No increased thirst. No abnormal weight change HEMATOLOGIC/LYMPHATIC: No anemia, easy bleeding, or history of blood clots. ALLERGIC/IMMUNOLOGIC: No hives or skin allergy. *Physical Exam - Vital Signs Last Vital Signs Temp Pulse Resp BP Pulse Ox 97.8 F 88 16 129/74 100 06/20/18 15:44 06/20/18 15:44 06/20/18 15:44 06/20/18 15:44 06/20/18 15:44 - Physical Exam Comments: 06/20/18 15:56 GENERAL: Awake, alert, and fully oriented, in no acute distress HEAD: No signs of trauma, normocephalic, atraumatic EYES: PERRLA, EOMI, sclera anicteric, conjunctiva clear ENT: Auricles normal inspection, hearing grossly normal, nares patent, oropharynx clear without exudates. Moist mucosa NECK: Normal ROM, supple, no lymphadenopathy, JVD, or masses LUNGS: No distress, speaks full sentences, clear to auscultation bilaterally HEART: Regular rate and rhythm, normal S1 and S2, no murmurs, rubs or gallops, peripheral pulses normal and equal bilaterally. ABDOMEN: Soft, nontender, normoactive bowel sounds. No guarding, no rebound. No masses EXTREMITIES : LUE: Normal inspection, Normal range of motion, no edema. No clubbing or cyanosis. RIGHT HAND: Right 2nd digit fusiform swelling, with slight palpable ttp along lateral aspect of finger. No obvious bony deformity, laceration, or foireign body involvement. Pain with passive and active flexion. Normal flexion at DIP, PIP. No pain with finger extension. Finger held in extension. No Nailbed avulsion or involvement. Palpable and symmetric radial pulses. Absent warmth, erythema. SKIN: Warm, Dry, normal turgor, no rashes or lesions noted Moderate Sedation - Procedure Monitoring Vital Signs: Procedure Monitoring Vital Signs Temperature 97.8 F 06/20/18 15:44 Pulse Rate 88 06/20/18 15:44 Respiratory Rate 16 06/20/18 15:44 Blood Pressure 129/74 06/20/18 15:44 O2 Sat by Pulse Oximetry (%) 100 06/20/18 15:44 Medical Decision Making - Medical Decision Making 06/20/18 16:55 52 yo M with no significant pmh who p/w p/w right second digit swelling s/p injury. VSS, AF, A&OX3. Right 2nd digit fusiform swelling, with slight palpable ttp along lateral aspect of finger. No obvious bony deformity, laceration, or foreign body involvement. Pain with passive and active flexion. No pain with finger extension. Finger held in extension. No nailbed avulsion. R 2nd digit neruovasculalry intact. R/o finger fracture or dislocation. Low suspicion cellultiis, nec. fasc, abscess, paronychia. Low suspicion flexor tenosynovitis. Patient with fusiform swelling, but absent tendon sheath ttp, flexed posture, or pain/resistance with passive flexion. No systemic s/s of infection. Ed Course: Boostrix, Keflex 500 mg R HAND RAD 06/20/18 17:18 R HAND RAD: Soft tissue swelling. Unremarkable Patient stable for d/c with return precautions. Advised to f/u with PMD. Patient advised to f/u with hand surgery Keflex BID sent to pharmacy *DC/Admit/Observation/Transfer Diagnosis at time of Disposition: Finger injury Qualifiers: Encounter type: initial encounter Laterality: right Qualified Code(s): S69.91XA - Unspecified injury of right wrist, hand and finger(s), initial encounter - Discharge Dispostion Condition at time of disposition: Stable - Prescriptions Prescriptions: Cephalexin [Keflex] 500 mg PO BID #5 capsule MDD 2 tab - Referrals Referrals: Glen Fierro MD [Staff Physician] - - Patient Instructions Printed Discharge Instructions: DI for Finger Sprain Additional Instructions: Please return to the emergency department with any new or worsening symptoms or concerns. Please follow up with your primary care physician within 72 hours. Please follow up with hand surgery within 72 hours. - Post Discharge Activity - Attestations Physician Attestion: 06/20/18 15:56 I attest to the information provided in this note.
[2018-06-20] MEDS ORDERED: DIPHTH,PERTUSS(ACELL),TET 0.5 ML DISP.SYRIN IM ONE ×2 (16:32→16:39)
--- NOTE | 2018-06-20 16:42 | PDOC ---
Attending Attestation - Resident Resident Name: RomaineSanyaDelio - ED Attending Attestation I have performed the following: I have examined & evaluated the patient, The case was reviewed & discussed with the resident, I agree w/resident's findings & plan, Exceptions are as noted - HPI HPI: 06/20/18 16:40 52y no pmhx presents with swelling of R 2nd digit for the past day. pt cut his finger yesterday at work lifiting a garbage bag with a pecie of tin sticking out. pt denies any fever/chills notse pain to th efinger tip and a 'swelling' senation. denies any pain to the rest of the finger. no pain with flexion/extension of MCP, PIP, DIP. on exam pt has mild ttp to the pad of his R 2nd digit. no erythema, induration, fluctuance, warmth. no discharge. 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
[2018-06-20] MEDS ORDERED: CEPHALEXIN MONOHYDRATE 500 MG CAPSULE (UD) PO ONE (17:53)
[2018-06-20] MEDS ORDERED: CEPHALEXIN MONOHYDRATE 500 MG CAPSULE (UD) ONE (17:57)
== END 2018-06-20 18:15 | disposition home or self-care (01) ==
LOC: FER 15:44
PROC: 3E0234Z Introduction of Serum, Toxoid and Vaccine into Muscle, Percutaneous Approach (ICD-10-PCS; principal; 2018-06-20)
DX: S69.91XA Unspecified injury of right wrist, hand and finger(s), initial encounter (principal); X58.XXXA Exposure to other specified factors, initial encounter; Y93.89 Activity, other specified; Y92.9 Unspecified place or not applicable; I10 Essential (primary) hypertension
CPT/HCPCS: 73130-TC-RT-FY; 90715; 99283-25

== ENCOUNTER 2018-07-28 12:20 | Emergency (ER) | payer BC, OTHER ==
[2018-07-28 12:25] VITALS: BP 121/77; PULSE 64; TEMP 98.3; BMI 27.3
[2018-07-28] MEDS ORDERED: IBUPROFEN 600 MG TABLET (FP) PO ONE ×2 (12:28→12:46)
--- NOTE | 2018-07-28 13:14 | PDOC ---
History of Present Illness - General Chief Complaint: Pain, Acute Stated Complaint: LEFT ANKLE PAIN Time Seen by Provider: 07/28/18 12:26 - History of Present Illness Initial Comments: 07/28/18 13:11 Chief complaint ankle pain History of present illness 52 years old no significant past medical history twisted his left ankle while at work complaining of moderate pain to the left lateral aspect of his ankle. Persistent constant able to ambulate worse with ambulation No other injury sustained. Past History - Past Medical History Allergies/Adverse Reactions: Allergies Allergy/AdvReac Type Severity Reaction Status Date / Time bee venom protein (honey bee) Allergy Verified 07/28/18 12:21 No Known Drug Allergies Allergy Verified 07/28/18 12:21 Home Medications: Ambulatory Orders NK [No Known Home Medication] 07/28/18 Anemia: No Asthma: Yes (SINCE CHILDHOOD,DOESN'T USE INHALERS) Cancer: No Cardiac Disorders: No CVA: No COPD: No CHF: No Dementia: No Diabetes: No GI Disorders: No Disorders: No HTN: Yes (NOT ON MEDS ANYMORE) Hypercholesterolemia: Yes Liver Disease: No Seizures: No Thyroid Disease: No - Surgical History Abdominal Surgery: Yes (REPAIR ABD HERNIA 1990) Appendectomy: No Cardiac Surgery: No Cholecystectomy: No Lung Surgery: No Neurologic Surgery: Yes (C5-7 FUSION 2006) Orthopedic Surgery: Yes (RIGHT LEG SX X2 1998,2000) - Immunization History Immunization Up to Date: Yes - Suicide/Smoking/Psychosocial Hx Smoking Status: No Smoking History: Never smoked Have you smoked in the past 12 months: No Number of Cigarettes Smoked Daily: 0 Hx Alcohol Use: No Drug/Substance Use Hx: No Substance Use Type: None Hx Substance Use Treatment: No Review of Systems - Review of Systems Comments:: 07/28/18 13:11 ROS: A complete review of 10 out of 10 review of systems is taken and is negative apart from what is previously mentioned below and in the HPI. *Physical Exam - Vital Signs Last Vital Signs Temp Pulse Resp BP Pulse Ox 98.3 F 64 15 121/77 100 07/28/18 12:20 07/28/18 12:20 07/28/18 12:20 07/28/18 12:20 07/28/18 12:20 - Physical Exam Comments: 07/28/18 13:12 Vitals: Triage Vital signs reviewed General Appearance: no acute distress, well nourished well developed, Extremities: Full range of motion to all extremities tenderness to palpation over the lateral malleolus. Neurovascularly intact distally. No pain or tenderness to nguyễn calf or knee. Skin: Warm and dry, no rashes or lesions, no rash, no petechiae Neuro: AOX3; Cranial Nerves 2-12 grossly intact, Strength intact to all extremities, Sensation intact to all extremities,gait normal Psych: normal mood, normal affect Moderate Sedation - Procedure Monitoring Vital Signs: Procedure Monitoring Vital Signs Temperature 98.3 F 07/28/18 12:20 Pulse Rate 64 07/28/18 12:20 Respiratory Rate 15 07/28/18 12:20 Blood Pressure 121/77 07/28/18 12:20 O2 Sat by Pulse Oximetry (%) 100 07/28/18 12:20 ED Treatment Course - RADIOLOGY Radiology Studies Ordered: Category Date Time Status ANKLE-LEFT [RAD] Stat Radiology 07/28/18 12:27 Taken - Medications Given in the ED: ED Medications Discontinued Medications Generic Name Dose Route Start Last Admin Trade Name Jaya PRN Reason Stop Dose Admin Ibuprofen 600 mg 07/28/18 12:28 07/28/18 12:47 Motrin - PO 07/28/18 12:29 600 mg ONCE ONE Administration Medical Decision Making - Medical Decision Making 07/28/18 13:13 Well-appearing no apparent distress swelling over the lateral malleolus X-ray negative for acute fracture dislocation we'll place an Aircast crutches and have patient follow up with orthopedics. Findings, the need for follow-up and strict return instructions discussed patient. *DC/Admit/Observation/Transfer Diagnosis at time of Disposition: Ankle sprain Qualifiers: Encounter type: initial encounter Laterality: left - Discharge Dispostion Disposition: HOME Condition at time of disposition: Stable Decision to Admit order: No - Referrals Referrals: Dusty Louis MD [Primary Care Provider] - Jason De Anda MD [Staff Physician] - - Patient Instructions Printed Discharge Instructions: Ankle Sprain Additional Instructions: Take [id number] Motrin as directed on package. Use crutches while ambulating. Rest. Ice affected ankle 20 minutes on 20 minutes off. Follow-up with orthopedics within 1 week if still having pain. Return to emergency department for any concerns. - Post Discharge Activity Forms/Work/School Notes: Back to Work
== END 2018-07-28 13:27 | disposition home or self-care (01) ==
LOC: FER 12:20
DX: S93.402A Sprain of unspecified ligament of left ankle, initial encounter (principal); X58.XXXA Exposure to other specified factors, initial encounter; Y93.89 Activity, other specified; Y92.89 Other specified places as the place of occurrence of the external cause; I10 Essential (primary) hypertension; E78.00 Pure hypercholesterolemia, unspecified
CPT/HCPCS: 73610-TC-LT-FY; 99283-25

== ENCOUNTER 2019-02-08 12:05 | Emergency (ER) | payer OTHER ==
[2019-02-08 12:10] VITALS: BP 107/71; PULSE 64; TEMP 98.8; BMI 27.3
--- NOTE | 2019-02-08 12:15 | PDOC ---
History of Present Illness - General Chief Complaint: Injury Stated Complaint: LEFT FOOT INJURY Time Seen by Provider: 02/08/19 12:14 - History of Present Illness Initial Comments: 02/08/19 13:14 HPI: 53 y/o M with pmh HTN and HLD not currently on any meds presenting after sustaining an injury to his left foot. He was working this morning and his foot against a vehicle as he was lifting his foot around 9am and felt initial pain. Throughout the rest of his shift, the pain improved however, around 11am the pain returned. Pain was worse with pressure and ambulation and he rates it 5/ 10. He hasnt attempted any pain meds. Patient denies any change in sensation, difficulty walking, bleeding, open wounds PMHx: as noted above PSH: BL inguinal hernia repair, umbilical hernia repair ROS: as noted SHx: Denies Etoh, IVDA, tobacco use Allergies: NKDA Past History - Past Medical History Allergies/Adverse Reactions: Allergies Allergy/AdvReac Type Severity Reaction Status Date / Time bee venom protein (honey bee) Allergy Verified 02/08/19 12:07 No Known Drug Allergies Allergy Verified 02/08/19 12:07 Home Medications: Ambulatory Orders NK [No Known Home Medication] 07/28/18 Anemia: No Asthma: Yes (h/o childhood) Cancer: No Cardiac Disorders: No CVA: No COPD: No CHF: No Dementia: No Diabetes: No GI Disorders: No Disorders: No HTN: Yes (h/o) Hypercholesterolemia: Yes (h/o) Liver Disease: No Seizures: No Thyroid Disease: No - Surgical History Abdominal Surgery: Yes (REPAIR ABD HERNIA 1990) Appendectomy: No Cardiac Surgery: No Cholecystectomy: No Lung Surgery: No Neurologic Surgery: Yes (C5-7 FUSION 2006, rt knee sx) Orthopedic Surgery: Yes (RIGHT LEG SX X2 1998,2000) - Immunization History Immunization Up to Date: Yes - Suicide/Smoking/Psychosocial Hx Smoking Status: No Smoking History: Never smoked Have you smoked in the past 12 months: No Number of Cigarettes Smoked Daily: 0 Information on smoking cessation initiated: No Hx Alcohol Use: No Drug/Substance Use Hx: No Substance Use Type: None Hx Substance Use Treatment: No Review of Systems - Review of Systems Comments:: 02/08/19 13:19 GENERAL/CONSTITUTIONAL: No fever or chills. No weakness. HEAD, EYES, EARS, NOSE AND THROAT: No change in vision. No ear pain or discharge. No sore throat. CARDIOVASCULAR: No chest pain or shortness of breath RESPIRATORY: No cough, wheezing, or hemoptysis. GASTROINTESTINAL: No nausea, vomiting, diarrhea or constipation. GENITOURINARY: No dysuria, frequency, or change in urination. MUSCULOSKELETAL: +foot pain SKIN: No rash NEUROLOGIC: No headache, vertigo, loss of consciousness, or change in strength/ sensation. ENDOCRINE: No increased thirst. No abnormal weight change HEMATOLOGIC/LYMPHATIC: No anemia, easy bleeding, or history of blood clots. ALLERGIC/IMMUNOLOGIC: No hives or skin allergy. *Physical Exam - Vital Signs Last Vital Signs Temp Pulse Resp BP Pulse Ox 98.8 F 64 18 107/71 100 02/08/19 12:05 02/08/19 12:05 02/08/19 12:05 02/08/19 12:05 02/08/19 12:05 - Physical Exam Comments: 02/08/19 13:20 PE: GENERAL: Awake, alert, and fully oriented, in no acute distress HEAD: No signs of trauma, normocephalic, atraumatic EYES: EOMI, sclera anicteric, conjunctiva clear ENT: Auricles normal inspection, hearing grossly normal, nares patent, oropharynx clear without exudates. Moist mucosa NECK: Normal ROM, supple, no lymphadenopathy, JVD, or masses LUNGS: No distress, speaks full sentences, clear to auscultation bilaterally HEART: Regular rate and rhythm, normal S1 and S2, no murmurs, rubs or gallops, peripheral pulses normal and equal bilaterally. ABDOMEN: Soft, nontender, normoactive bowel sounds. No guarding, no rebound. No masses EXTREMITIES : Normal inspection, Normal range of motion, no edema. TTP in left foot along 5th metatarsal. no skin breakdown or abrasion. no erythema NEUROLOGICAL: Cranial nerves II through XII grossly intact. Normal speech, normal gait, no focal sensorimotor deficits SKIN: Warm, Dry, normal turgor, no rashes or lesions noted Medical Decision Making - Medical Decision Making 02/08/19 13:21 53 y/o M with pmh HTN and HLD not currently on any meds presenting after sustaining an injury to his left foot. Will ruleout fracture -left foot XR 3 views 02/08/19 13:22 No fracture appreciated after review with attending Dr Payton Will DC home with instructions for 600mg ibuprofen q6hr prn, ice and elevation LIANNE wrap provided for comfort prn Referral given to Dr Felix if no improvement in 1-2 weeks *DC/Admit/Observation/Transfer Diagnosis at time of Disposition: Foot pain, left - Discharge Dispostion Disposition: HOME Condition at time of disposition: Stable - Referrals Referrals: Dusty Louis MD [Primary Care Provider] - Isidro Iniguez MD [Staff Physician] - - Patient Instructions Printed Discharge Instructions: DI for Foot Pain Additional Instructions: If pain does not improve within 2 weeks, see orthopedist Dr Hira Felix for further evaluation For pain relief, take ibuprofen 600mg every 6hrs as needed Elevate foot and ice at site of pain LIANNE wrap as needed for comfort - Post Discharge Activity Forms/Work/School Notes: Back to Work
--- NOTE | 2019-02-08 12:37 | PDOC ---
Attending Attestation - Resident Resident Name: Eric Gonzalez - ED Attending Attestation I have performed the following: I have examined & evaluated the patient, The case was reviewed & discussed with the resident, I agree w/resident's findings & plan, Exceptions are as noted - HPI HPI: 02/08/19 12:45 53 year old male c/ hx of HTNl, HLD p/w L foot pain. Pt was at work today when he hit his left foot by accidentally on hard object. This occurred at approximately at 9 am. Since then, pt has been ambulatory but noted that when he walks or when he touched the lateral aspect of the left foot, he experienced pain. No numbness and weakness. Pt is ambulatory. Denies any ankle pain. - Physicial Exam PE: 02/08/19 12:46 GENERAL: Awake, alert, and fully oriented, in no acute distress HEAD: No signs of trauma EYES: EOMI, sclera anicteric, conjunctiva clear ENT: Auricles normal inspection, hearing grossly normal, NECK: Normal ROM, supples EXTREMITIES: LLE: 2+ DP pulse. Sensation and strength intact throughout. TTP mid 5th metatarsal but no gross abnormalities. no ecchymosis or lacerations or abrasions. able to wiggle all toes. < 2 sec cap refill. No ankle tenderness or joint instability. NEUROLOGICAL: Cranial nerves II through XII grossly intact. Normal speech SKIN: Warm, Dry, normal turgor, no rashes or lesions noted. - Medical Decision Making 02/08/19 12:50 Vital Signs Temp Pulse Resp BP Pulse Ox 98.8 F 64 18 107/71 100 02/08/19 12:05 02/08/19 12:05 02/08/19 12:05 02/08/19 12:05 02/08/19 12:05 Likely foot contusion, but r/o fracture. Left foot xray. 02/08/19 13:30 Foot xray reviewed by me, pending official radiology read. No fracture. RICE therapy. Supportive care. Follow up with orthopedics if symptoms persist for more than 2 weeks.
== END 2019-02-08 13:15 | disposition home or self-care (01) ==
LOC: FER 12:05
DX: M79.672 Pain in left foot (principal); I10 Essential (primary) hypertension; E78.5 Hyperlipidemia, unspecified
CPT/HCPCS: 73630-TC-LT; 99283-25

== ENCOUNTER 2020-01-19 14:00 | Emergency (ER) | payer BC, OTHER ==
[2020-01-19 14:26] VITALS: BP 127/83; PULSE 68; TEMP 98; BMI 28.1
== END 2020-01-19 15:25 | disposition home or self-care (01) ==
LOC: FER 14:00
DX: A69.20 Lyme disease, unspecified (principal); W57.XXXA Bitten or stung by nonvenomous insect and other nonvenomous arthropods, initial encounter
CPT/HCPCS: 99283-25

== ENCOUNTER 2020-01-23 14:44 | Emergency (ER) | payer BC, OTHER ==
[2020-01-23 14:51] VITALS: BMI 28.1
--- NOTE | 2020-01-23 15:18 | PDOC ---
History of Present Illness - General Chief Complaint: Wound Stated Complaint: WOUND REDNESS Time Seen by Provider: 01/23/20 14:48 - History of Present Illness Initial Comments: 01/23/20 18:15 Chief complaint: Rash HPI: Patient removed a tick from his upper left chest several days ago. Was seen in the ER and prescribed doxycycline. Taking the medication twice daily. He complains that there is redness and burning at the site of the bite. Review of systems: Reviewed and otherwise negative including joint pains, muscle pains, chest pain, shortness of breath, abdominal pain, nausea, vomiting, diarrhea, visual or focal neurologic symptoms. Remainder of systems reviewed and negative Past medical history: Reviewed and noncontributory Social/family history reviewed and noncontributory Physical exam: Alert and oriented well-developed well-nourished no acute distress cooperative Afebrile, vital signs normal There is a 3 cm x 5 cm area of erythema, induration, left upper chest, with a central insect bite wound in which debris is still visible. This may be a partially removed tick or crusting. There is also eczematous change of the indurated skin Impression: Localized eczematous/allergic reaction Plan: The debris was removed by scraping with the blade of the scalpel, with its removal in entirety. The patient was recommended cool compresses, and the application of steroid ointment. To continue oral antibiotics for presumed tick bite and follow-up with primary physician when antibiotics are completed. Fully ambulatory and in no distress at discharge to follow-up as directed Past History - Medical History Allergies/Adverse Reactions: Allergies Allergy/AdvReac Type Severity Reaction Status Date / Time bee venom protein (honey bee) Allergy Verified 01/23/20 14:45 No Known Drug Allergies Allergy Verified 01/23/20 14:45 Home Medications: Ambulatory Orders Doxycycline Hyclate 100 mg PO BID #28 capsule 01/19/20 Triamcinolone 0.1% Ointment [Aristocort 0.1% Ointment -] 1 applic TP TID #1 tube 01/23/20 Anemia: No Asthma: Yes (h/o childhood) Cancer: No Cardiac Disorders: No CVA: No COPD: No CHF: No Dementia: No Diabetes: No GI Disorders: No Disorders: No HTN: Yes (h/o) Hypercholesterolemia: Yes (h/o) Liver Disease: No Seizures: No Thyroid Disease: No - Surgical History Abdominal Surgery: Yes (REPAIR ABD HERNIA 1990) Appendectomy: No Cardiac Surgery: No Cholecystectomy: No Lung Surgery: No Neurologic Surgery: Yes (C5-7 FUSION 2006, rt knee sx) Orthopedic Surgery: Yes (RIGHT LEG SX X2 1998,2000) - Immunization History Immunization Up to Date: Yes - Psycho-Social/Smoking History Smoking Status: No Smoking History: Never smoked Have you smoked in the past 12 months: No Number of Cigarettes Smoked Daily: 0 - Substance Abuse Hx (Audit-C & DAST Scrn) How often the patient has a drink containing alcohol: Never Score: In Men: 4 or > Positive; In Women: 3 or > Positive: 0 Screen Result (Pos requires Nsg. Audit-10AR): Negative In the last yr the pt used illegal drug/Rx for NonMed reason: No Score: Yes response is considered Positive: 0 Screen Result (Positive result requires Nsg. DAST-10): Negative *Physical Exam - Vital Signs Last Vital Signs Temp Pulse Resp BP Pulse Ox 0/0 L 01/23/20 14:45 Discharge - Discharge Information Problems reviewed: Yes Clinical Impression/Diagnosis: Allergic reaction Qualifiers: Encounter type: initial encounter Qualified Code(s): T78.40XA - Allergy, unspecified, initial encounter Condition: Stable Disposition: HOME - Admission No - Additional Discharge Information Prescriptions: Triamcinolone 0.1% Ointment [Aristocort 0.1% Ointment -] 1 applic TP TID #1 tube - Follow up/Referral Referrals: Jackelin Davis [Staff Physician] - - Patient Discharge Instructions Patient Printed Discharge Instructions: Eczema Additional Instructions: Cool compresses, ointment as directed. Continue antibiotics orally as prescribed. Follow-up primary physician in 2 days. - Post Discharge Activity Work/Back to School Note: Back to Work
[2020-01-23 15:38] VITALS: BP 150/82; PULSE 64; TEMP 98.6
== END 2020-01-23 15:34 | disposition home or self-care (01) ==
LOC: FER 14:44
DX: T78.40XA Allergy, unspecified, initial encounter (principal)
CPT/HCPCS: 99282-25

== ENCOUNTER 2020-10-13 08:58 | Emergency (ER) | payer OTHER ==
[2020-10-13 09:14] VITALS: BP 146/98; PULSE 70; TEMP 98; BMI 28.1
== END 2020-10-13 11:20 | disposition home or self-care (01) ==
LOC: FER 08:58
DX: S60.042A Contusion of left ring finger without damage to nail, initial encounter (principal)
CPT/HCPCS: 73140-TC-LT-FY; 99283-25

== ENCOUNTER 2021-02-05 08:08 | Observation (INO) | payer BC, OTHER ==
[2021-02-05] MEDS ORDERED: ONDANSETRON 4 MG/2 ML VIAL IVPUSH ONE (08:20)
[2021-02-05] MEDS ORDERED: LACTATED RINGERS SOLUTION 1,000 ML/1,000 ML INFUS.BAG IV STA (08:22)
[2021-02-05] MEDS ORDERED: ONDANSETRON 4 MG/2 ML VIAL ONE (08:24)
[2021-02-05 08:48] LABS: BASO % 0.7 % (0-2.0); EOS % 0.6 % (0-4.5); HEMATOCRIT 49.3 % (35.4-49); HEMOGLOBIN 17.4 GM/dl (11.7-16.9); LYMPH % 13.9 % (8-40); MCH 30.3 pg (25.7-33.7); MCHC 35.3 g/dl (32.0-35.9); MEAN PLT VOLUME 7.5 fl (7.5-11.1); NEUT % 80.8 % (42.8-82.8); PLATELET COUNT 290 10^3/uL (134-434); RBC 5.74 M/mm3 (4.00-5.60); RDW 12.1 % (11.9-15.9); WHITE BLOOD COUNT 7.5 K/mm3 (4.0-10.8)
[2021-02-05 08:53] LABS: INR 0.94 (0.82-1.09); PROTHROMBIN TIME (PATIENT) 10.6 SEC (10.2-13.0)
[2021-02-05 08:57] LABS: ALBUMIN 4.3 g/dl (3.4-5.0); ALK PHOS 64 U/L (45-117); ANION GAP 15 MMOL/L (8-16); BILIRUBIN,TOTAL 1.3 mg/dl (0.2-1); CALCIUM 9.3 mg/dl (8.5-10); CHLORIDE 99 mmol/L (98-107); CO2 22 mmol/L (21-32); GLUCOSE,RANDOM 130 mg/dl (74-106); SGOT/AST 27 U/L (15-37); SGPT/ALT 34 U/L (13-61); SODIUM 136 mmol/L (136-145); TOT PROT 7.1 g/dl (6.4-8.2)
[2021-02-05] MEDS ORDERED: MECLIZINE HCL 25 MG TABLET (FP) PO ONE (09:16)
[2021-02-05] MEDS ORDERED: SODIUM CHLORIDE 0.9% 500 ML INFUS.BAG IV ONE ×2 (09:20→12:04)
[2021-02-05] MEDS ORDERED: MECLIZINE HCL 25 MG TABLET (FP) ONE (09:21)
[2021-02-05] MEDS ORDERED: diazePAM CARPU-JECT 10 MG/2 ML DISP.SYRIN IVPUSH ONE (10:16)
[2021-02-05] MEDS ORDERED: diazePAM CARPU-JECT 10 MG/2 ML DISP.SYRIN ONE (10:21)
[2021-02-05 14:21] VITALS: BMI 29.9
[2021-02-05 14:41] LABS: CHOLESTEROL 284 mg/dl (50-200); HDL CHOLESTEROL 52 mg/dl (40-60); LDL CHOLESTEROL (ONLY DFH) 213 mg/dl (5-100); TRIGLYCERIDES 94 mg/dl (0-150)
[2021-02-05] MEDS ORDERED: ONDANSETRON 4 MG/2 ML VIAL IVPUSH PRN (16:28)
[2021-02-05] MEDS: MECLIZINE HCL 25 MG TABLET (FP) PO SCH (16:59)
[2021-02-05] MEDS ORDERED: ATORVASTATIN CA 40 MG TABLET (FP) PO SCH (22:00)
[2021-02-06] MEDS: MECLIZINE HCL 25 MG TABLET (FP) PO SCH ×2 (00:51→06:27)
[2021-02-06 06:47] VITALS: BP 116/57; PULSE 65; TEMP 98.5
[2021-02-06 07:36] LABS: BASO % 2.9 % (0-2.0); EOS % 1.9 % (0-4.5); HEMATOCRIT 47.7 % (35.4-49); HEMOGLOBIN 16.6 GM/dl (11.7-16.9); LYMPH % 18.8 % (8-40); MCH 29.9 pg (25.7-33.7); MCHC 34.8 g/dl (32.0-35.9); MEAN PLT VOLUME 7.3 fl (7.5-11.1); MONO % 5.9 % (3.8-10.2); NEUT % 70.5 % (42.8-82.8); PLATELET COUNT 279 10^3/uL (134-434); RBC 5.54 M/mm3 (4.00-5.60); RDW 12.2 % (11.9-15.9); WHITE BLOOD COUNT 7.9 K/mm3 (4.0-10.8)
[2021-02-06 07:54] LABS: ALBUMIN 3.5 g/dl (3.4-5.0); BILIRUBIN,TOTAL 1.5 mg/dl (0.2-1); CALCIUM 8.9 mg/dl (8.5-10); CREATININE 1.1 mg/dl (0.55-1.3)
[2021-02-06] MEDS ORDERED: ENOXAPARIN NA (PORCINE) 40 MG/0.4 ML DISP.SYRIN SQ SCH (10:00)
== END 2021-02-06 12:48 | disposition home or self-care (01) ==
LOC: FER 08:08 → FM/S 12:29 → FER 13:44 → UNDOADMOB 13:45 → INTOOBSV 13:45 → FM/S 13:45
PROVIDERS: ADMIT Psychiatry & Neurology Neurology; ATTEND Nurse Practitioner Acute Care
PROC: 3E023GC Introduction of Other Therapeutic Substance into Muscle, Percutaneous Approach (ICD-10-PCS; principal; 2021-02-05)
PROC: 3E033NZ Introduction of Analgesics, Hypnotics, Sedatives into Peripheral Vein, Percutaneous Approach (ICD-10-PCS; 2021-02-05)
PROC: 3E0337Z Introduction of Electrolytic and Water Balance Substance into Peripheral Vein, Percutaneous Approach (ICD-10-PCS; 2021-02-05)
PROC: 3E033GC Introduction of Other Therapeutic Substance into Peripheral Vein, Percutaneous Approach (ICD-10-PCS; 2021-02-05)
DX: R42 Dizziness and giddiness (principal); R53.1 Weakness; I10 Essential (primary) hypertension; E78.5 Hyperlipidemia, unspecified; I25.10 Atherosclerotic heart disease of native coronary artery without angina pectoris; Z86.73 Personal history of transient ischemic attack (TIA), and cerebral infarction without residual deficits; F17.210 Nicotine dependence, cigarettes, uncomplicated; R26.81 Unsteadiness on feet; J44.9 Chronic obstructive pulmonary disease, unspecified; R20.2 Paresthesia of skin
CPT/HCPCS: 36415; 70496-TC; 70498-TC; 70551-TC; 80053; 80061; 83735; 84484; 85025; 85610; 85730; 93005; 97116-GP; 97162-GP; 99285-25; C9803; G0378; U0003; U0005

== ENCOUNTER 2021-04-27 14:49 | Emergency (ER) | payer BC, OTHER ==
[2021-04-27 14:55] VITALS: BP 124/86; PULSE 62; TEMP 97.9; BMI 29.0
== END 2021-04-27 15:51 | disposition home or self-care (01) ==
LOC: FER 14:49
DX: R20.2 Paresthesia of skin (principal)
CPT/HCPCS: 99281-25

== ENCOUNTER 2021-07-03 11:44 | Emergency (ER) | payer OTHER ==
[2021-07-03 11:56] VITALS: BP 120/85; PULSE 70; TEMP 98.5; BMI 29.0
[2021-07-03] MEDS ORDERED: IBUPROFEN 400 MG TABLET (FP) PO ONE ×2 (12:02→12:17)
== END 2021-07-03 13:08 | disposition home or self-care (01) ==
LOC: FER 11:44 → SUPCPDRO 11:44 → FER 13:08
DX: M25.512 Pain in left shoulder (principal)
CPT/HCPCS: 73030-TC-LT-FY; 99284-25

== ENCOUNTER 2021-10-06 12:35 | Emergency (ER) | payer OTHER ==
[2021-10-06 12:40] VITALS: BP 137/87; PULSE 78; TEMP 97.9; BMI 29.8
[2021-10-06] MEDS ORDERED: LIDOCAINE 5% TOPICAL PATCH TP ONE (13:08)
[2021-10-06] MEDS ORDERED: KETOROLAC TROMETHAMINE 30 MG/1 ML VIAL IM ONE (13:08)
[2021-10-06] MEDS ORDERED: ACETAMINOPHEN 500 MG TABLET (FP) PO ONE (13:08)
[2021-10-06] MEDS ORDERED: KETOROLAC TROMETHAMINE 30 MG/1 ML VIAL ONE (13:20)
[2021-10-06] MEDS ORDERED: ACETAMINOPHEN 325 MG TABLET (FP) ONE (13:20)
[2021-10-06] MEDS ORDERED: LIDOCAINE 5% TOPICAL PATCH ONE (13:20)
[2021-10-06] MEDS ORDERED: LIDOCAINE PATCH REMOVAL MC SCH (22:00)
== END 2021-10-06 13:44 | disposition home or self-care (01) ==
LOC: FER 12:35
PROC: 3E0233Z Introduction of Anti-inflammatory into Muscle, Percutaneous Approach (ICD-10-PCS; principal; 2021-10-06)
DX: S76.011A Strain of muscle, fascia and tendon of right hip, initial encounter (principal); X50.0XXA Overexertion from strenuous movement or load, initial encounter
CPT/HCPCS: 99284-25

== ENCOUNTER 2021-10-09 07:05 | Emergency (ER) | payer OTHER ==
[2021-10-09 07:19] VITALS: BP 127/82; PULSE 53; TEMP 97.3; BMI 29.8
[2021-10-09] MEDS ORDERED: ACETAMINOPHEN 325 MG TABLET (FP) PO ONE (07:29)
[2021-10-09] MEDS ORDERED: ACETAMINOPHEN 325 MG TABLET (FP) ONE (07:31)
== END 2021-10-09 07:40 | disposition home or self-care (01) ==
LOC: FER 07:05
DX: M54.50 Low back pain, unspecified (principal)
CPT/HCPCS: 99283-25

== ENCOUNTER 2021-10-10 13:17 | Emergency (ER) | payer OTHER ==
[2021-10-10 13:41] VITALS: BP 137/88; PULSE 68; TEMP 97.9; BMI 29.8
== END 2021-10-10 15:26 | disposition home or self-care (01) ==
LOC: FER 13:17
DX: M25.551 Pain in right hip (principal)
CPT/HCPCS: 73502-TC-RT-FY; 99283-25

== ENCOUNTER 2022-01-28 00:35 | Emergency (ER) | payer BC ==
[2022-01-28 00:45] VITALS: BP 127/82; PULSE 85; TEMP 100.1; BMI 29.0
[2022-01-28] MEDS ORDERED: ACETAMINOPHEN 500 MG TABLET (FP) ONE (01:00)
[2022-01-28] MEDS ORDERED: ACETAMINOPHEN 500 MG TABLET (FP) PO ONE (01:00)
== END 2022-01-28 01:15 | disposition home or self-care (01) ==
LOC: FER 00:35
DX: B34.9 Viral infection, unspecified (principal)
CPT/HCPCS: 0241U-QW; 99283-25

== ENCOUNTER 2022-12-28 17:57 | Emergency (ER) | payer OTHER, BC ==
[2022-12-28 18:06] VITALS: BP 110/61; PULSE 68; RESP 18; TEMP 98.6; BMI 25.9
== END 2022-12-28 18:40 | disposition home or self-care (01) ==
LOC: FER 17:57
DX: R22.32 Localized swelling, mass and lump, left upper limb (principal); S60.012A Contusion of left thumb without damage to nail, initial encounter; X58.XXXA Exposure to other specified factors, initial encounter; Y93.E5 Activity, floor mopping and cleaning; Y92.219 Unspecified school as the place of occurrence of the external cause; Y99.0 Civilian activity done for income or pay
CPT/HCPCS: 99282-25

== ENCOUNTER 2023-01-31 04:29 | Emergency (ER) | payer BC, OTHER ==
[2023-01-31 04:46] VITALS: BP 119/74; PULSE 59; RESP 18; TEMP 98; BMI 25.2
[2023-01-31] MEDS ORDERED: predniSONE 20 MG TABLET (UD) PO ONE (04:52)
[2023-01-31] MEDS ORDERED: predniSONE 20 MG TABLET (UD) ONE (04:54)
== END 2023-01-31 05:06 | disposition home or self-care (01) ==
LOC: FER 04:29
DX: L23.7 Allergic contact dermatitis due to plants, except food (principal)
CPT/HCPCS: 99283-25